=== PATIENT | male | born 1950 | race Caucasian/White ===

== ENCOUNTER 2017-01-13 10:28 | Inpatient (IN) | payer MEDICARE, OTHER ==
[~2017-01-13] VITALS: Ht 170.2 cm; Wt 95.2 kg
[2017-01-13 10:55] VITALS: BP 135/71
[2017-01-13 11:57] LABS: HEMATOCRIT 35.5 % (39.0-50.0); HEMOGLOBIN 11.8 g/dl (14.0-18.0); IMMATURE GRANULOCYTES 0.5 % (0.0-1.0); MEAN CELL VOLUME 92.4 fL CALC (80.0-100.0); MEAN CORPUSCULAR HGB 30.7 pG CALC (26.0-32.0); MEAN CORPUSCULAR HGB CONC 33.2 g/L CALC (32.0-36.0); NEUT# 4.19 thou/uL (1.82-7.42); RED BLOOD COUNT 3.84 mill/uL (4.70-6.10)
[2017-01-13 12:14] LABS: ALBUMIN 3.7 g/dL (3.2-5.0); ALKALINE PHOSPHATASE 89 u/l (38-126); ANION GAP 14 (6-22 (CALC)); BILIRUBIN, TOTAL 0.2 mg/dL (0.0-1.4); BUN 13 mg/dL (8-23); BUN/CREATININE RATIO 16 (12-20 (CALC)); CALCIUM 9.9 mg/dL (8.4-10.2); CARBON DIOXIDE 27 mmol/l (22-30); CHLORIDE 101 mmol/l (95-108); CREATININE 0.8 mg/dL (0.7-1.3); GFR > 60 ML/MIN (>=60 (CALC)); GFR FOR AFR.AMER. > 60 ML/MIN (>=60 (CALC)); GLUCOSE 113 mg/dL (82-115); SGOT/AST 23 u/l (19-48); SGPT/ALT 32 u/l (11-66); SODIUM 137 mmol/l (137-146); TOTAL PROTEIN 6.1 g/dL (6.3-8.2)
[2017-01-13] MEDS ORDERED: NORVASC PO (12:42)
[2017-01-13] MEDS ORDERED: ZESTRIL10 M1 PO (12:42)
[2017-01-13] MEDS ORDERED: OXYCODONE20 M1 PO (12:42)
[2017-01-13] MEDS ORDERED: CLONAZEPAM1 M1 PO (12:43)
[2017-01-13 13:04] LABS: MAGNESIUM 1.8 mg/dL (1.6-2.3)
[2017-01-13 16:50] VITALS: BP 110/74
[2017-01-13 17:05] VITALS: BP 104/70
[2017-01-13 17:20] VITALS: BP 118/59
[2017-01-13 19:00] VITALS: BP 127/83
[2017-01-13 23:37] VITALS: BP 120/80
[2017-01-14 05:34] VITALS: BP 119/75
[2017-01-14 06:05] LABS: HEMATOCRIT 32.9 % (39.0-50.0); HEMOGLOBIN 11.1 g/dl (14.0-18.0); IMMATURE GRANULOCYTES 1.1 % (0.0-1.0); MEAN CELL VOLUME 91.9 fL CALC (80.0-100.0); MEAN CORPUSCULAR HGB CONC 33.7 g/L CALC (32.0-36.0); NEUT# 5.72 thou/uL (1.82-7.42); RED BLOOD COUNT 3.58 mill/uL (4.70-6.10); RED CELL DISTRI WIDTH 13.8 % (11.5-15.5)
[2017-01-14 06:09] LABS: ANION GAP 13 (6-22 (CALC)); BUN 8 mg/dL (8-23); BUN/CREATININE RATIO 10 (12-20 (CALC)); CALCIUM 9.1 mg/dL (8.4-10.2); CARBON DIOXIDE 26 mmol/l (22-30); CHLORIDE 101 mmol/l (95-108); CREATININE 0.8 mg/dL (0.7-1.3); GFR > 60 ML/MIN (>=60 (CALC)); GFR FOR AFR.AMER. > 60 ML/MIN (>=60 (CALC)); GLUCOSE 101 mg/dL (82-115); MAGNESIUM 1.4 mg/dL (1.6-2.3); POTASSIUM 4.3 mmol/l (3.5-5.1); SODIUM 135 mmol/l (137-146)
[2017-01-14 07:54] VITALS: BP 119/71
[2017-01-14 15:40] VITALS: BP 129/77
[2017-01-14 19:35] VITALS: BP 121/76
[2017-01-14 23:30] VITALS: BP 121/80
[2017-01-15 04:40] VITALS: BP 101/65
[2017-01-15 05:09] LABS: HEMATOCRIT 35.7 % (39.0-50.0); HEMOGLOBIN 11.9 g/dl (14.0-18.0); IMMATURE GRANULOCYTES 0.3 % (0.0-1.0); MEAN CELL VOLUME 92.5 fL CALC (80.0-100.0); MEAN CORPUSCULAR HGB 30.8 pG CALC (26.0-32.0); MEAN CORPUSCULAR HGB CONC 33.3 g/L CALC (32.0-36.0); NEUT# 3.47 thou/uL (1.82-7.42); RED BLOOD COUNT 3.86 mill/uL (4.70-6.10); RED CELL DISTRI WIDTH 14.2 % (11.5-15.5)
[2017-01-15 05:20] LABS: ANION GAP 15 (6-22 (CALC)); BUN 5 mg/dL (8-23); BUN/CREATININE RATIO 7 (12-20 (CALC)); CALCIUM 9.6 mg/dL (8.4-10.2); CARBON DIOXIDE 26 mmol/l (22-30); CHLORIDE 103 mmol/l (95-108); CREATININE 0.7 mg/dL (0.7-1.3); GFR > 60 ML/MIN (>=60 (CALC)); GFR FOR AFR.AMER. > 60 ML/MIN (>=60 (CALC)); GLUCOSE 96 mg/dL (82-115); MAGNESIUM 1.9 mg/dL (1.6-2.3); POTASSIUM 4.3 mmol/l (3.5-5.1); SODIUM 139 mmol/l (137-146)
[2017-01-15 09:27] VITALS: BP 97/66
[2017-01-15] MEDS ORDERED: LIBRIUM25 M1 PO (11:51)
[2017-01-15] MEDS ORDERED: OXYCODONE20 M1 PO (11:51)
[2017-01-15] MEDS ORDERED: EC ASPIRIN325 MG PO (11:56)
[2017-01-15 12:02] VITALS: BP 117/76
== END 2017-01-15 14:16 | DRG 494 ==
LOC: MS2 10:28
PROVIDERS: Nurse Practitioner Family; ADMIT Podiatrist Foot & Ankle Surgery; ATTEND Podiatrist Foot & Ankle Surgery
PROC: 0QSH04Z Reposition Left Tibia with Internal Fixation Device, Open Approach (ICD-10-PCS; principal; 2017-01-13)
DX: S82.52XA Displaced fracture of medial malleolus of left tibia, initial encounter for closed fracture (principal); E83.42 Hypomagnesemia; G62.9 Polyneuropathy, unspecified; I10 Essential (primary) hypertension; K21.9 Gastro-esophageal reflux disease without esophagitis; M19.90 Unspecified osteoarthritis, unspecified site; F10.20 Alcohol dependence, uncomplicated; K59.00 Constipation, unspecified; W01.0XXA Fall on same level from slipping, tripping and stumbling without subsequent striking against object, initial encounter; Y92.009 Unspecified place in unspecified non-institutional (private) residence as the place of occurrence of the external cause; Z96.662 Presence of left artificial ankle joint
CPT/HCPCS: J3475